=== PATIENT | male | born 1995 | race Caucasian/White ===

== ENCOUNTER 2018-03-15 20:57 | Emergency (ER) | payer OTHER ==
[~2018-03-15] VITALS: Ht 177.8 cm; Wt 81.6 kg
[2018-03-15 21:10] VITALS: BP 122/74
[2018-03-15] MEDS ORDERED: NKM (21:12)
--- NOTE | 2018-03-15 21:56 | Emergency Room Report ---
History of Present Illness General Chief Complaint: Laceration Source: Patient (Inderjit Sullivan MD) Source: Patient (Yuval Parra MD) Present Illness HPI 22-year-old male presents ED status post laceration. 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 States pain is a 5 out of 10, dull, nonradiating. Denies any other injuries. States tetanus is up-to-date. No other aggravating relieving factors. Denies any other associated symptoms (Yuval Parra MD) Allergies: Coded Allergies: No Known Allergies (Unverified , 03/15/18) Patient History Past Medical History: none Past Surgical History: none Pertinent Family History: none Social History: Denies: smoking, alcohol use, drug use Immunizations: UTD Reviewed Nursing Documentation: PMH: Agreed; PSxH: Agreed (Yuval Parra MD) Nursing Documentation-PMH Past Medical History: No Stated History (Inderjit Sullivan MD) Review of Systems All Other Systems: negative except mentioned in HPI (Yuval Parra MD) Physical Exam Vital Signs Date Time Temp Pulse Resp B/P (MAP) Pulse Ox O2 Delivery O2 Flow Rate FiO2 03/15/18 21:04 98.3 88 16 117/70 96 Room Air 98.2 (Inderjit Sullivan MD) Sp02 EP Interpretation: reviewed, normal General Appearance: no apparent distress, alert, GCS 15, non-toxic Head: normocephalic Eyes: bilateral eye normal inspection, bilateral eye PERRL ENT: normal ENT inspection Neck: normal inspection Respiratory: normal inspection Cardiovascular #1: normal inspection Gastrointestinal: normal inspection Rectal: deferred Genitourinary: no CVA tenderness Musculoskeletal: normal inspection Neurologic: alert, oriented x3, responsive, motor strength/tone normal, sensory intact, speech normal Psychiatric: judgement/insight normal, memory normal, mood/affect normal, no suicidal/homicidal ideation Skin: laceration - 2cm laceration to dorsal aspect of L hand. no tendon involvement Lymphatic: normal inspection (Yuval Parra MD) Procedures Laceration/Wound Repair Laceration/Wound Repair : Consent: Emergent Wound Location: upper extremity Wound's Depth, Shape: superficial Wound Length (cm): 2 Wound Explored: clean Irrigated w/ Saline (ccs): 10 Betadine Prep?: No - chlorhexidine prep Anesthesia: 1% Lidocaine Volume Anesthetic (ccs): 3 Wound Repaired With: sutures Suture Size/Type: 4:0, proline Number of Sutures: 4 Layer Closure?: No Sterile Dressing Applied?: Yes Patient Tolerated: Well Complications: None (Inderjit Sullivan MD) Medical Decision Making Diagnostic Impression: Primary Impression: Laceration ER Course Hospital Course 22-year-old M presents to ED s/p laceration L hand using knife Clinical course Patient placed on stretcher. After initial history and physical, wound is irrigated. Dr. Sullivan graciously repaired the laceration on my behalf. bacitracin/ dressing applied Diagnosis - laceration Stable and discharged to home. wound Care instructions given. Followup with PMD in 10-14 days for suture removal. Return to ED if any signs of infection develop (Yuval Parra MD) Last Vital Signs Date Time Temp Pulse Resp B/P (MAP) Pulse Ox O2 Delivery O2 Flow Rate FiO2 03/15/18 21:04 98.3 88 16 117/70 96 Room Air 98.2 (Inderjit Sullivan MD) Status: improved (Yuval Parra MD) Disposition: HOME, SELF-CARE Condition: Stable Referrals: NOT CHOSEN IPA/,REFERRING (PCP) Inderjit Sullivan MD March 15, 2018 21:56 Yuval Parra MD March 16, 2018 05:03
[2018-03-15] MEDS ORDERED: Bacitracin Oint UD TOPIC ONE (22:00)
[2018-03-15 22:10] VITALS: BP 122/74
== END 2018-03-15 22:10 | disposition home or self-care (01) ==
LOC: EMR 21:26
DX: S61.412A Laceration without foreign body of left hand, initial encounter (principal); W27.5XXA Contact with paper-cutter, initial encounter; Y92.89 Other specified places as the place of occurrence of the external cause
CPT/HCPCS: 99284